=== PATIENT | male | born 2000 | race Two or more races ===

== ENCOUNTER 2024-06-10 00:24 | Emergency (ER) | payer SELFPAY ==
[2024-06-10 00:24] VITALS: BMI 21.5
[2024-06-10 00:33] VITALS: BP 133/69; PULSE 75; RESP 20; TEMP 36.4; O2SAT 99
--- NOTE | 2024-06-10 00:43 | EKG_ITS ---
[facility] Test Date: 2024-06-10 Pat Name: LAURA HENSON Department: Room: - Gender: Male [employer]: : 2000 Requested By: Fredi Arroyo Order Number: [id number] Reading MD: Fredi Arroyo Measurements Intervals [place] Rate: 86 P: 78 AK: 165 QRS: 8 QRSD: 98 T: 60 QT: 346 QTc: 415 Interpretive Statements SINUS RHYTHM INDETERMINATE AXIS INCOMPLETE RIGHT BUNDLE BRANCH BLOCK [90+ ms QRS DURATION, TERMINAL R IN V1/V2, 40+ ms S IN I/aVL/V4/V5/V6] ST ELEVATION CONSISTENT WITH INJURY, PERICARDITIS, OR EARLY REPOLARIZATION [ST ELEVATION W/O NORMALLY INFLECTED T-WAVE] No previous ECG available for comparison /[id number]
--- NOTE | 2024-06-10 00:43 | PD.EDRME ---
Rapid Medical Screening Exam RME Arrival date/time: 06/10/24 00:24 24 year old male present to ED for c/o of rapid hr I have greeted and performed a focused initial assessment of this patient. A comprehensive ED assessment and evaluation of the patient, analysis of all test results, and completion of the medical decision making process will be conducted by additional ED providers. Chief Complaint: Arrhythmia/Palpitations Time Seen by Provider: 06/10/24 00:28 Vital signs: Vital Signs Temperature 97.6 F 06/10/24 00:33 Pulse Rate 75 06/10/24 00:33 Respiratory Rate 20 06/10/24 00:33 Blood Pressure 133/69 H 06/10/24 00:33 Pulse Oximetry (%) 99 06/10/24 00:33 Oxygen Delivery Method Room Air 06/10/24 00:33
[2024-06-10 01:08] LABS: Basophils % (Auto) 0 % (0-2.5); Eosinophils # (Auto) 0.7 Thou/mm3 (0.0-0.5); Eosinophils % (Auto) 7 % (0-10); Hematocrit 42.5 % (41.0-53.0); Hemoglobin 14.9 g/dL (13.5-16.0); Immature Granulocytes % (Auto) 0 % (0-0); Immature Granulocytes Auto 0.02 Thou/mm3 (0.00-0.00); Lymphocytes # (Auto) 3.3 Thou/mm3 (1.0-4.8); Lymphocytes % (Auto) 31 % (10-50); Mean Corpuscular HGB Conc 35.1 g/dl (31.0-37.0); Mean Corpuscular Hemoglobin 30.7 pg (25.0-35.0); Mean Corpuscular Volume 88 fL (80-100); Monocytes # (Auto) 0.9 Thou/mm3 (0.0-0.8); Monocytes % (Auto) 9 % (0-12); Neutrophils # (Auto) 5.6 Thou/mm3 (1.8-7.7); Neutrophils % (Auto) 53 % (37-80); Nucleated Red Blood Cell % 0 /100 WBC (0); Platelet Count 162 Thou/mm3 (140-440); RDW Standard Deviation 39.3 fL (35.1-43.9); Red Blood Count 4.85 Miln/mm3 (4.50-5.90); White Blood Count 10.6 Thou/mm3 (3.8-10.6)
[2024-06-10 01:32] LABS: Alanine Aminotransferase 63 U/L (10-49); Albumin, Serum 4.6 gm/dL (3.5-5.0); Albumin/Globulin Ratio 1.5 (1.2-2.2); Alkaline Phosphatase 79 U/L (46-116); Anion Gap 7 (7-16); Aspartate Amino Transferase 57 U/L (0-34); BUN/Creatinine Ratio 9 Ratio (12-20); Bilirubin,Total 0.5 mg/dL (0.3-1.2); Blood Urea Nitrogen 8 mg/dL (9-23); Calcium 9.3 mg/dL (8.3-10.6); Calcium (Corrected) 9.3 mg/dL (8.5-10.1); Carbon Dioxide 28.8 mMol/L (20.0-31.0); Chloride 99 mMol/L (98-107); Creatinine (Component) 0.9 mg/dL (0.6-1.3); Estimated Creatinine Clearance 122.8 mL/min (>60); Glucose 107 mg/dL (74-106); Magnesium 1.6 mg/dL (1.6-2.6); Osmolality,Calculated 268 (275-295); Potassium 3.5 mMol/L (3.4-5.1); Sodium 135 mMol/L (136-145); Thyroid Stimulating Hormone 6.79 uIU/mL (0.55-4.78); Total Protein 7.6 gm/dL (5.7-8.2); Troponin I < 0.002 ng/mL (0.0-0.045); eGFR > 60 See Note
== END 2024-06-10 02:28 | disposition left against medical advice (07) ==
PROVIDERS: Physician Assistant; Emergency Provider Emergency Medicine
DX: R00.2 Palpitations (principal); I45.10 Unspecified right bundle-branch block; Z53.29 Procedure and treatment not carried out because of patient's decision for other reasons
CPT/HCPCS: 36415; 80053; 83735; 84443; 84484; 85025; 99281

== ENCOUNTER 2024-06-10 07:46 | Emergency (ER) | payer SELFPAY ==
[2024-06-10 07:47] VITALS: BMI 21.5
[2024-06-10 07:54] VITALS: BP 120/80; PULSE 83; RESP 18; TEMP 36.8; O2SAT 97
--- NOTE | 2024-06-10 08:08 | XR_ITS ---
Examination: PA lateral chest 2 views TECHNIQUE: Upright PA lateral chest 2 views Exam date and time: June 10, 2024 0821 hours INDICATIONS: Chest pain today. FINDINGS: Normal heart size Lungs are clear. The osseous structures are intact IMPRESSION: No active disease
--- NOTE | 2024-06-10 09:51 | PD.EDANX ---
ED Anxiety RME/HPI General Chief Complaint: Arrhythmia/Palpitations Stated Complaint: REQ LAB RESULTS, FEELS LIKE FAST HEARTRATE Time Seen by Provider: 06/10/24 08:03 Arrival date/time: 06/10/24 07:46 24-year-old male presents emergency department today patient was evaluated yesterday at full lab work and EKG patient reports today for his results. Patient reports yesterday he felt he had a rapid heart rate Limitations: no limitations Related Data Previous Rx's ?Medication ?Instructions ?Recorded cephalexin 500 mg capsule 500 mg PO TID #7 caps 08/29/22 Allergies Allergy/AdvReac Type Severity Reaction Status Date / Time No Known Allergies Allergy Verified 06/10/24 07:49 Review of Systems Review of Systems Systems Reviewed: All systems reviewed, normal except as documented Constitutional Constitutional: Reports system reviewed and no additional complaints, except as documented, Denies fever(s) and Denies headache(s) Eyes Eyes: Reports system reviewed and no additional complaints, except as documented and Denies blurry vision ENT Ears, Nose, Mouth, and Throat: Reports system reviewed and no additional complaints, except as documented, Denies headache(s), Denies nasal congestion and Denies nasal discharge Cardiovascular Cardiovascular: Reports system reviewed and no additional complaints, except as documented, Denies chest pain and Denies dyspnea Respiratory Respiratory: Reports system reviewed and no additional complaints, except as documented, Denies chest congestion, Denies cough and Denies dyspnea Gastrointestinal Gastrointestinal: Reports system reviewed and no additional complaints, except as documented and Denies abdominal pain Integumentary/Breasts Skin/Breast: Reports system reviewed and no additional complaints, except as documented and Denies rash Neurologic Neurologic: Reports system reviewed and no additional complaints, except as documented, Reports as per HPI and Denies headache(s) Psychiatric Psychiatric: Reports system reviewed and no additional complaints, except as documented and Reports anxiety Past Medical History Social History SMOKING STATUS: Never smoker ED Exam General Limitations: Present no limitations General appearance: Present alert and in no apparent distress Head Head exam: Present atraumatic, normocephalic and normal inspection Eye Eye exam: Present normal appearance, PERRL and EOMI; Absent conjunctival injection ENT ENT exam: Present normal exam, normal oropharynx and mucous membranes moist Neck Neck exam: Present normal inspection, full ROM and trachea midline Chest Chest inspection: Present normal inspection and symmetric chest wall rise Respiratory Respiratory exam: Present normal lung sounds bilaterally; Absent respiratory distress Cardiovascular Cardiovascular exam: Present regular rate, normal rhythm and normal heart sounds Abdominal Exam Abdominal exam: Present soft and normal bowel sounds; Absent distention, tenderness, guarding, rebound or rigidity Extremities Exam Extremities exam: Present normal inspection and full ROM Back Exam Back exam: Present normal inspection and full ROM Neurological Exam Neurological exam: Present alert, oriented X3, CN II-XII intact, normal gait and reflexes normal; Absent motor sensory deficit Psychiatric Psychiatric exam: Present anxious Skin Skin exam: Present warm, dry, intact and normal color Course Quality Measures none Orders Category Date Time Status XR chest 2V Stat Exams 06/10/24 08:08 Completed Vital Signs Vital signs: Vital Signs Temperature 98.3 F 06/10/24 07:54 Pulse Rate 83 06/10/24 07:54 Respiratory Rate 18 06/10/24 07:54 Blood Pressure 120/80 06/10/24 07:54 Pulse Oximetry (%) 97 06/10/24 07:54 Oxygen Delivery Method Room Air 06/10/24 07:54 Anxiety MDM Narrative MDM Narrative: 24-year-old male presents emergency department today patient was evaluated yesterday at full lab work and EKG patient reports today for his results. Patient reports yesterday he felt he had a rapid heart rate Patient ports all symptoms have resolved Imaging obtained as this is the only thing that was not ordered yesterday Chest x-ray unremarkable Patient discharged home in no distress to follow-up with primary care doctor in the next 24 to 48 hours and for any worsening symptoms to return to the ER immediately Patient data External records reviewed:: [facility] previous records Clinical information provided by:: patient Social determinants that could affect healthcare access:: none Patient has the following chronic illnesses:: None How is presenting disease/condition affected by chronic disease/condition?: no chronic disease Evaluation data The following diagnostics were reviewed and interpreted by me:: lab results, radiology exam(s) and EKG tracing(s) Lab and/or radiology exams considered but not ordered:: Labs, radiology, EKG reviewed Interpretation Summary: Reviewed by me Medications / Prescriptions Medications or Prescriptions considered but not ordered:: No meds Medication administrations:: No meds Consultations Consultation(s) initiated? (list below): No Diagnosis Differential diagnosis anxiety: hyperventilation, panic disorder and acute anxiety Most likely diagnosis given after review of the tests above:: Anxiety Admission Indicated Admission indicated?: not indicated Admission Request Was there a request for admission?: No Disposition Plan Disposition Plan: Discharge Discharge Attestation Discharge Attestation: The patient and all family members were given an opportunity to ask questions and understood the discharge instructions. Discharge instructions specifically effects, indications for sooner follow up or return to the emergency department, and the expected course of current diagnosis. Patient condition: Stable Discharge Plan Plan Patient Disposition: HOME (Self Care) Disposition Comment: Stable Prescriptions/Referrals Prescriptions/Med Rec: No Action cephalexin 500 mg capsule 500 mg PO TID Qty: 7 0RF Referrals: No Primary/Family,Physician [Primary Care Provider] - In 1 week Problem List Clinical Impression: Palpitations, Anxiety Patient/Caregiver Discharge Instructions Education Materials: Your Heart's Electrical System Additional Instructions: Please follow up with your primary care doctor in the next 24-48hrs for any worsening symptoms return here immediately Print Language: Pashto Stand Alone Forms: [place] Award Info., Patient Portal Info Letter JOYA/JUAN RAMON Supervising Physician JOYA/JUAN RAMON Supervising Physician: Dr. Wild
== END 2024-06-10 10:28 | disposition home or self-care (01) ==
PROVIDERS: Emergency Provider Emergency Medicine
DX: R00.2 Palpitations (principal); F41.9 Anxiety disorder, unspecified; R00.0 Tachycardia, unspecified; R07.9 Chest pain, unspecified
CPT/HCPCS: 71046; 99283